=== PATIENT | female | born 1930 | race African-American/Black ===

== ENCOUNTER 2016-10-11 21:00 | Emergency (ER) | payer OTHER ==
[~2016-10-11] VITALS: Ht 167.6 cm; Wt 73.0 kg
[2016-10-11 22:13] LABS: INR 1.3; PROTHROMBIN TIME 13.5 sec
[2016-10-11 22:15] LABS: ALBUMIN 2.1 g/dL (3.4-5.0); ANION GAP 12; CALCIUM 9.3 mg/dL (8.5-10.1); CARBON DIOXIDE 28 mEq/L (21-32); CHLORIDE 104 mEq/L (98-107); INDEX HEMOLYSI 1 (1-3); INDEX ICTERIC 1 (1-4); INDEX LIPEMIC 1 (1-3); UREA NITROGEN BLOOD 28 mg/dL (7-21)
[2016-10-11] MEDS ORDERED: SODIUM CHLORIDE 0.9% 1,000 ML IV ONE (22:19)
[2016-10-11 22:21] LABS: ALANINE AMINOTRANSFERASE 7 IU/L (13-61); TROPONIN I 0.05 ng/mL (0.00-0.04); eGFR 16 mL/min (>60)
[2016-10-11 22:23] LABS: LACTIC ACID 2.5 mmol/L (0.4-2.0)
[2016-10-11] MEDS ORDERED: SODIUM CHLORIDE 0.9% 1000ML BAG (SEPSIS BOLUS) IV ONE (22:30)
[2016-10-11] MEDS ORDERED: SODIUM CHLORIDE 0.9% 500 ML IV ONE (22:40)
[2016-10-11 22:48] LABS: HEMATOCRIT. 29.2 % (36.0-48.0); HEMOGLOBIN. 8.9 g/dL (12.0-16.0); MEAN CORPUSCULAR HEMOGLOBIN 22.9 pg (28.0-32.0); MEAN CORPUSCULAR HGB CONC 30.4 g/dL (31.0-37.0); MEAN CORPUSCULAR VOLUME 75.2 fL (81.0-99.0); MEAN PLATELET VOLUME 6.5 fl (7.4-10.4); PLATELET 216 x1000/uL (130-400); RED BLOOD CELL COUNT 3.88 mill/uL (4.2-5.4); RED CELL DISTRIBUTION WIDTH 21.7 % (11.6-14.6); WHITE BLOOD COUNT 5.3 x1000/uL (4.5-11.0)
[2016-10-11 22:50] LABS: DIFFERENTIAL COMMENT 1
[2016-10-11 23:06] LABS: HYPOCHROMASIA 1+; NUCLEATED RED BLOOD CELLS 3 /100 WBC; PLATELET ESTIMATE NORMAL
[2016-10-11] MEDS ORDERED: VANCOMYCIN 1 G PREMIX 200 ML IV SCH (23:15)
[2016-10-12 04:10] VITALS: BP 145/78
== END 2016-10-12 04:31 | disposition short-term general hospital (02) ==
LOC: ER 21:04
DX: L03.113 Cellulitis of right upper limb (principal); I12.9 Hypertensive chronic kidney disease with stage 1 through stage 4 chronic kidney disease, or unspecified chronic kidney disease; D50.9 Iron deficiency anemia, unspecified; N18.9 Chronic kidney disease, unspecified; E11.9 Type 2 diabetes mellitus without complications; R05 Cough; Z99.2 Dependence on renal dialysis; Z89.511 Acquired absence of right leg below knee
CPT/HCPCS: 36415; 70450; 71010; 80053; 82962; 83605; 84484; 85025; 85610; 87040; 93005; 96365; 99285; J3370; J7040; J7030